=== PATIENT | male | born 1990 | race Hispanic/Latino ===

== ENCOUNTER 2020-04-02 17:09 | Emergency (ER) | payer OTHER ==
[~2020-04-02] VITALS: Ht 162.6 cm; Wt 95.3 kg
[2020-04-02] MEDS ORDERED: NAPROSYN500 MG PO ×2 (17:46→17:50)
[2020-04-02] MEDS ORDERED: HYDROCODONE/APAP 5MG-325MG TAB PO ONE (18:00)
== END 2020-04-02 18:14 | disposition home or self-care (01) ==
LOC: FSED 17:16
DX: S43.101A Unspecified dislocation of right acromioclavicular joint, initial encounter (principal); V86.55XA Driver of 3- or 4- wheeled all-terrain vehicle (ATV) injured in nontraffic accident, initial encounter; Y92.89 Other specified places as the place of occurrence of the external cause
CPT/HCPCS: 71045; 99284